=== PATIENT | female | born 1995 | race Caucasian/White ===

== ENCOUNTER 2017-01-06 22:58 | Emergency (ER) | payer MEDICAID ==
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
--- NOTE | 2017-01-08 10:56 | RADIOLOGY REPORT ---
Three views of the right four finger demonstrate no displaced fracture or dislocation. The visualized joints appear unremarkable. IMPRESSION: No displaced injury is identified. If clinically indicated, further evaluation and/or follow-up may be of benefit. SHANTEL
== END 2017-01-06 23:51 | disposition home or self-care (01) ==
LOC: ER 22:58
DX: S63.614A Unspecified sprain of right ring finger, initial encounter (principal); Y04.0XXA Assault by unarmed brawl or fight, initial encounter; Y07.12 Biological mother, perpetrator of maltreatment and neglect; Y92.019 Unspecified place in single-family (private) house as the place of occurrence of the external cause; F10.10 Alcohol abuse, uncomplicated; F17.210 Nicotine dependence, cigarettes, uncomplicated
CPT/HCPCS: 99283

== ENCOUNTER 2017-01-28 16:58 | Emergency (ER) | payer MEDICAID ==
--- NOTE | 2017-01-28 17:58 | ER NURSING DOCUMENTATION ---
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 today she tripped and c/o pain to right top of foot just below toes 2 and 3. States she has an appointment with ortho tomorrow but foot hurts too much to wait. also states she is concerned that she may be a diabetic. states she has had a weight gain of approx 45 lbs. Transition of care: Home. 17:09 Method Of Arrival: Walk In la Triage Assessment: 17:13 General: Appears comfortable, Behavior is appropriate for age, cooperative, pleasant. la Pain: Complains of pain in top of right foot Pain currently is 7 out of 10 on a pain scale. Aggravated by increased activity. EENT: No deficits noted. Neuro: Level of Consciousness is awake, alert, Oriented to person, place, time, event. Cardiovascular: No deficits noted. Respiratory: No deficits noted. GI: No deficits noted. : No deficits noted. Derm: No deficits noted. Musculoskeletal: Circulation, motion, and sensation intact Capillary refill < 3 seconds. Historical: - Allergies: No known drug Allergies; - Home Meds: 1. Adderall XR Oral 2. Celexa Oral 3. Zyprexa Oral - PMHx: ADHD; DEPRESSION; - PSHx: None; - Tetanus: unknown. - Ebola Screening: : Patient negative for fever greater than or equal to 101.5 degrees Fahrenheit, and additional compatible Ebola Virus Disease symptoms. - Immunization history: Flu Vaccine unknown. - Social history: Smoking status: Patient uses tobacco products, current every day smoker. Patient uses alcohol marijuana. Screenin:16 Infectious Disease Risk None. Abuse screen: Denies threats or abuse. Nutritional la screening: No deficits noted. Assessment: 17:16 See Triage Assessment done by same RN. la Vital Signs: 17:15 BP 133 / 88 LA Sitting; Pulse 126; Resp 18; Temp 98.9(O); Pulse Ox 93% on R/A; Weight la 77.11 kg (R); Height 5 ft. 4 in. (162.56 cm) (R); Pain 8/10; 17:56 BP 113 / 81 RA Sitting; Pulse 104; Resp 18; Pulse Ox 93% ; Pain 8/10; la 17:15 Body Mass Index 29.18 (77.11 kg, 162.56 cm) md ED Course: 16:59 Patient arrived in ED. dp 17:00 Paz, Provider is Private Physician. dp 17:04 Triage completed. 17:09 Lin Fine is Primary Nurse. la 17:16 Valuables Remains with patient Patient has correct armband on for positive la identification. Bed in low position. Call light in reach. Side rails up X 1. Verbal reassurance given. Pillow given. 17:34 Bhavik Gonsales MD is Attending Physician. brendon 17:35 Tucker Vargas DO, Maximiliano Sarabia MD is Referral Physician. 17:35 Port Xray Completed. hz Administered Medications: No medications were administered Point of Care Testing: Blood Glucose: 17:53 Blood Glucose: 80 mg/dL; la Ranges: Outcome: 17:35 Discharge ordered by . brendon 17:57 Discharged to home ambulatory. md 17:57 Condition: good 17:57 Discharge Assessment: Patient awake, alert and oriented x 3. No cognitive and/or functional deficits noted. Patient verbalized understanding of disposition instructions. 17:57 Discharge instructions given to patient, Instructed on discharge instructions, follow up and referral plans. medication usage, Demonstrated understanding of instructions, medications, Prescriptions given X 1. 17:57 Patient left the ED. la Signatures: Bhavik Gonsales MD MD jm Alexander, Linda la Sherri Zabala Natalee Valdes hz Holley Starr dp
--- NOTE | 2017-01-28 17:58 | ER PHYSICIAN DOCUMENTATION ---
Physician Documentation [facility] Name:Isabell Lopez Age:21 yrs Sex:Female :1995 Arrival Date:01/28/2017 Time:16:58 BedTrauma-B Private MD:Paz, Provider ED Bhavik Gonsales Disposition: 01/28/17 17:35 Discharged to Home/Self Care. Impression: Foot Contusion. - Condition is Good. - Discharge Instructions: CONTUSION, Foot. - Prescriptions for Tramadol 50 mg Oral Tablet - take 1 tablet by ORAL route every 8 hours as needed; 12 tablet. - Medical Reconciliation form form. - Follow up: Tucker Vargas DO, Maximiliano Sarabia MD; When: 1 - 2 days; Reason: Continuance of care. - Problem is new. - Symptoms have improved. HPI: 01/28 17:00 This 21 yrs old Female presents to ER via Walk In with complaints of Ankle jm Injury - RT. 17:00 The patient presents with an injury, pain, that is chronic. The complaints affect the jm right ankle, dorsum of right foot, right second toe and right third toe. Onset: The symptom(s)/episode began/occurred today. Context: The mechanism of injury is unknown. Associated signs and symptoms: Pertinent negatives: weakness. Severity of symptoms: in the emergency department the symptoms are unchanged. Pt is constantly on her feet at work and states that she's been having this chronic foot pain. She has appointment tomorrow w Dr. Vargas, but the pain is so bad and she was very anxious that something was wrong w her foot , so she came here. . Historical: - Allergies: No known drug Allergies; - Home Meds: 1. Adderall XR Oral 2. Celexa Oral 3. Zyprexa Oral - PMHx: ADHD; DEPRESSION; - PSHx: None; - Tetanus: unknown. - Ebola Screening: : Patient negative for fever greater than or equal to 101.5 degrees Fahrenheit, and additional compatible Ebola Virus Disease symptoms. - Immunization history: Flu Vaccine unknown. - Social history: Smoking status: Patient uses tobacco products, current every day smoker. Patient uses alcohol marijuana. ROS: 17:00 Constitutional: Negative for fever. jm 17:00 MS/extremity: Positive for pain, tenderness. 17:00 Skin: Negative for swelling. Exam: 17:00 Constitutional: The patient appears alert, awake. 17:00 Musculoskeletal/extremity: Extremities: grossly normal except: noted in the right third toe and right second toe and dorsum of right foot: pain, ROM: full active range of motion, full passive range of motion, Pulses: are normal with no appreciated deficits, Sensation intact. 17:00 Skin: Appearance: Color: pink, injury, is not appreciated. Vital Signs: 17:15 BP 133 / 88 LA Sitting; Pulse 126; Resp 18; Temp 98.9(O); Pulse Ox 93% on R/A; Weight la 77.11 kg (R); Height 5 ft. 4 in. (162.56 cm) (R); Pain 8/10; 17:56 BP 113 / 81 RA Sitting; Pulse 104; Resp 18; Pulse Ox 93% ; Pain 8/10; la 17:15 Body Mass Index 29.18 (77.11 kg, 162.56 cm) la MDM: 17:10 Patient medically screened. 20:26 Differential diagnosis: fracture, sprain. Data reviewed: vital signs, nurses notes, old medical records, radiologic studies, and as a result, I will discharge patient. Test interpretation: by ED physician or midlevel provider: plain radiologic studies. Counseling: I had a detailed discussion with the patient and/or guardian regarding: the historical points, exam findings, and any diagnostic results supporting the discharge/admit diagnosis, radiology results, the need for outpatient follow up, a orthopedic surgeon. 01/29 20:35 Order name: FOOT;[address] [place] [id number] EDMS Dispensed Medications: No medications were administered Point of Care Testing: Blood Glucose: 17:53 Blood Glucose: 80 mg/dL; la Ranges: Critical Glucose Levels:Adult <50 mg/dl or >400 mg/dl <40 mg/dl or >180 mg/dl Signatures: Bhavik Gonsales MD MD jm Alexander, Linda la
--- NOTE | 2017-01-29 19:21 | RADIOLOGY REPORT ---
Three views of the left foot demonstrate no displaced fracture or dislocation. The visualized joints appear unremarkable. IMPRESSION: No displaced injury is identified. If clinically indicated, further evaluation and/or follow-up may be of benefit. SHANTEL
== END 2017-01-28 17:58 | disposition home or self-care (01) ==
LOC: ER 16:58
DX: S90.31XA Contusion of right foot, initial encounter (principal); X50.9XXA Other and unspecified overexertion or strenuous movements or postures, initial encounter; Y92.511 Restaurant or cafe as the place of occurrence of the external cause; Y93.01 Activity, walking, marching and hiking
CPT/HCPCS: 99283

== ENCOUNTER 2017-02-20 15:55 | Emergency (ER) | payer MEDICAID ==
[2017-02-20 16:10] LABS: URINE RBC NONE SEEN (0-5/hpf); URINE WBC NONE SEEN (0-4/hpf)
[2017-02-20 16:17] LABS: URINE APPEARANCE CLEAR; URINE BILIRUBIN NEGATIVE (NEGATIVE); URINE BLOOD 50 Ery/uL (2+) (NEGATIVE); URINE COLOR YELLOW; URINE GLUCOSE NORMAL (NEGATIVE); URINE KETONE NEGATIVE (NEGATIVE); URINE LEUKOCYTE ESTERASE NEGATIVE (NEGATIVE); URINE NITRITE NEGATIVE (NEGATIVE); URINE PROTEIN NEGATIVE (NEG - TRACE); URINE SPECIFIC GRAVITY < or = 1.005 (0.001-1.035); URINE UROBILINOGEN 0.2mg/dL (Normal) (NEG-1mg/dL)
[2017-02-20 16:20] LABS: URINE AMORPHOUS SEDIMENT UP TO 25%/lpf (Up to 25%); URINE BACTERIA NONE SEEN (<10/hpf); URINE MUCUS NONE SEEN (Up to 25%); URINE SQUAMOUS EPITHELIAL CELL 0-5/hpf (<= 15/hpf)
--- NOTE | 2017-02-20 16:44 | ER PHYSICIAN DOCUMENTATION ---
Physician Documentation [facility] Name:Isabell Lopez Age:21 yrs Sex:Female :1995 Arrival Date:02/20/2017 Time:15:55 Bed3 Private MD:Marko Emerson ED, John Disposition: 02/20/17 16:39 Discharged to Home/Self Care. Impression: Insomnia. - Condition is Good. - Discharge Instructions: INSOMNIA. - Prescriptions for Ambien 10 mg Oral - take 1 tablet by ORAL route At bedtime As needed; 10 tablet. - Medical Reconciliation form form. - Follow up: [facility]; Reason: Continuance of care. - Problem is new. - Symptoms have improved. HPI: 02/20 16:50 This 21 yrs old Female presents to ER via Private Vehicle with complaints of jm Vaginal Bleeding. 16:50 The patient presents with a possible exposure to a sexually transmitted disease, jm vaginal bleeding that is light, a desire for a test. Also, pt has been getting no sleep. She had unprotected sex on February 05 and wonders if she is b/c her breasts hurt when she went down stairs today. . 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 Adderall XR Oral 2. Celexa Oral 3. Zyprexa Oral - PMHx: ADHD; DEPRESSION; - PSHx: NONE; - Tetanus: < 10 years. - Ebola Screening: : Patient negative for fever greater than or equal to 101.5 degrees Fahrenheit, and additional compatible Ebola Virus Disease symptoms. - Immunization history: Flu Vaccine >1 year. - Social history: Smoking status: Patient uses tobacco products, current every day smoker. Patient uses alcohol. ROS: 16:50 Positive for vaginal bleeding, spotting. jm 16:50 Psych: Positive for anxiety, insomnia. Exam: 16:50 Constitutional: The patient appears alert, awake, anxious. 16:50 Psych: Behavior/mood is pleasant, cooperative, anxious, Affect is calm. Vital Signs: 16:10 BP 134 / 87; Pulse 96; Resp 17; Temp 98.0(TE); Pulse Ox 96% on R/A; Weight 77.11 kg; rh Height 5 ft. 4 in. (162.56 cm); Pain 0/10; 16:10 Body Mass Index 29.18 (77.11 kg, 162.56 cm) rh MDM: 16:05 Patient medically screened. brendon 16:51 Differential diagnosis: dysmenorrhea, urinary tract infection, DUB, STD, insomnia. Data brendon reviewed: vital signs, nurses notes, and as a result, I will discharge patient. Counseling: I had a detailed discussion with the patient and/or guardian regarding: the historical points, exam findings, and any diagnostic results supporting the discharge/admit diagnosis, the need for outpatient follow up, an OB/Gyne specialist. 02/20 16:21 Order name: HCG, URINE; Complete Time: 16:31 EDOR 02/20 16:21 Order name: UA W/ MICRO -CULTURE IF IND; Complete Time: 16: EDMS 02/22 12:21 Order name: CHLAMYDIA/GC PROBE/URINE [facility] EDMS Dispensed Medications: No medications were administered Signatures: Bhavik Gonsales MD MD jm Hofsess, Rachel
--- NOTE | 2017-02-20 16:44 | ER NURSING DOCUMENTATION ---
Nurse's Notes [facility] Name:Isabell Lopez Age:21 yrs Sex:Female :1995 Arrival Date:02/20/2017 Time:15:55 Bed3 Private MD:Marko Emerson Diagnosis:Insomnia Presentation: 02/20 16:03 Acuity: ALEJANDRA 4 st 16:08 Presenting complaint: Patient states: PT thinks she may be . Last period was in January. Pt on Depo Shots and doesn't know if she is up to date. Pt also c/o burning with urination, itchiness and sore breasts. Transition of care: Home. 16:08 Method Of Arrival: Private Vehicle Triage Assessment: 16:09 General: Appears in no apparent distress, Behavior is anxious. Pain: Denies pain. : rh Urine is clear, Reports bedwetting vaginal itching vaginal bleeding that is spotty. Derm: Skin is intact, is healthy with good turgor, Skin is pink, warm & dry. 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 Adderall XR Oral 2. Celexa Oral 3. Zyprexa Oral - PMHx: ADHD; DEPRESSION; - PSHx: NONE; - Tetanus: < 10 years. - Ebola Screening: : Patient negative for fever greater than or equal to 101.5 degrees Fahrenheit, and additional compatible Ebola Virus Disease symptoms. - Immunization history: Flu Vaccine >1 year. - Social history: Smoking status: Patient uses tobacco products, current every day smoker. Patient uses alcohol. Screenin:11 Infectious Disease Risk None. Abuse screen: Denies threats or abuse. Denies injuries rh from another. Nutritional screening: No deficits noted. Assessment: 16:11 See Triage Assessment done by same RN. rh Vital Signs: 16:10 BP 134 / 87; Pulse 96; Resp 17; Temp 98.0(TE); Pulse Ox 96% on R/A; Weight 77.11 kg; rh Height 5 ft. 4 in. (162.56 cm); Pain 0/10; 16:10 Body Mass Index 29.18 (77.11 kg, 162.56 cm) rh ED Course: 15:57 Patient arrived in ED. ama 15:58 Marko Emerson MD is Private Physician. ama 16:03 Sharon Schwarz RN is Primary Nurse. st 16:[address] 16:05 Bhavik Gonsales MD is Attending Physician. 16:11 Notified ED Physician of patient's arrival and chief complaint. Dr. Gonsales notified. rh 16:11 Valuables Remains with patient Patient has correct armband on for positive rh identification. Call light in reach. 16:39 [facility] is Referral Physician. brendon Administered Medications: No medications were administered Outcome: 16:39 Discharge ordered by MD. 16:43 Discharged to home ambulatory. 16:43 Condition: stable 16:43 Discharge Assessment: Patient awake, alert and oriented x 3. No cognitive and/or functional deficits noted. Patient verbalized understanding of disposition instructions. 16:43 Discharge instructions given to patient, Instructed on discharge instructions, follow up and referral plans. Demonstrated understanding of instructions, medications, Prescriptions given X 1. 16:43 Patient left the ED. rh Signatures: Sharon Schwarz RN RN st Meyer, John, MD MD jm Averdick, Andrew, Reg Reg Sherri Mccormick
[2017-02-20] MEDS ORDERED: FLUMAZENIL 0.5 MG/5 ML VIAL IV ONE ×2 (23:18)
[2017-02-20] MEDS ORDERED: ONDANSETRON HCL 4 MG/2 ML VIAL ONE (23:27)
[2017-02-20] MEDS ORDERED: BENZTROPINE MESYLATE 2 MG/2 ML AMP ONE (23:32)
[2017-02-20] MEDS ORDERED: HALOPERIDOL 5 MG/ML VIAL ONE (23:32)
[2017-02-21] MEDS ORDERED: DIPHENHYDRAMINE 50 MG/ML VIAL ONE
[2017-02-21] MEDS ORDERED: HALOPERIDOL 5 MG/ML VIAL ONE ×2 (00:38)
[2017-02-22 12:21] LABS: CHLAMYDIA AMPLIFICATION BCH NEGATIVE (NEGATIVE); GONORRHOEAE AMPLIFICATION BCH NEGATIVE (NEGATIVE)
== END 2017-02-20 16:44 | disposition home or self-care (01) ==
LOC: ER 15:55
DX: G47.00 Insomnia, unspecified (principal); N93.9 Abnormal uterine and vaginal bleeding, unspecified; F41.9 Anxiety disorder, unspecified; Z79.899 Other long term (current) drug therapy; F17.210 Nicotine dependence, cigarettes, uncomplicated
CPT/HCPCS: 81001; 84703; 87798; 99282; J0515; J1200; J1630; J2405

== ENCOUNTER 2017-02-20 22:58 | Emergency (ER) | payer MEDICAID ==
[2017-02-20 23:28] LABS: HEMATOCRIT 48.9 % (36.0-48.0); HEMOGLOBIN 16.4 g/dL (12.0-16.0); MEAN CORPUSCULAR HEMOGLOBIN 29.6 pg (29.0-35.0); RED BLOOD COUNT 5.53 X 10^6uL (4.20-6.10); WHITE BLOOD COUNT 10.6 X 10^3uL (3.9-10.7)
[2017-02-20 23:29] LABS: BASOPHIL# 0.1 X 10^3uL (0.0-0.1); BASOPHILS 1.2 % (0.0-2.0); EOSINOPHILS 2.1 % (0.0-6.0); EOSINOPHILS# 0.2 X 10^3uL (0.0-0.4); MEAN CORPUS. HGB CONCENTRATION 33.5 g/dL (32.0-36.0); MONOCYTES 7.4 % (2.0-10.0); MONOCYTES# 0.8 X 10^3uL (0.2-1.0); NEUTROPHILS 34.3 % (54.0-75.0); NEUTROPHILS# 3.7 X 10^3uL (2.6-6.7); PLATELET COUNT 244 X 10^3uL (130-440); RED CELL DISTRIBUTION WIDTH 13.2 % (11.5-14.5)
[2017-02-20 23:30] LABS: ALBUMIN 4.8 g/dL (3.5-5.0); ALKALINE PHOSPHATASE 107 U/L (38-126); ALT 94 U/L (9-52); AST 74 U/L (14-36); BILIRUBIN, DIRECT 0.3 mg/dL (0.0-0.4); BILIRUBIN, TOTAL 0.4 mg/dL (0.2-1.3); BLOOD UREA NITROGEN 8 mg/dL (7-17); CALCIUM 9.3 mg/dL (8.4-10.2); CHLORIDE 109 mmol/L (98-107); EST GLOMERULAR FILTRATION RATE > 60 mL/min; GLUCOSE 97 mg/dL (70-100); LIPASE 129 U/L (23-300); POTASSIUM 3.8 mmol/L (3.5-5.1); SODIUM 147 mmol/L (137-145); TOTAL PROTEIN 8.3 g/dL (6.3-8.2)
[2017-02-20 23:32] LABS: ACETAMINOPHEN < 10.0 ug/mL (10.0-30.0); SALICYLATE < 1.0 mg/dL (<20.0)
[2017-02-20 23:54] LABS: ETHYL ALCOHOL 373 mg/dL (<10)
--- NOTE | 2017-02-21 00:41 | ER NURSING DOCUMENTATION ---
Nurse's Notes [facility] Name:Isabell Lopez Age:21 yrs Sex:Female :1995 Arrival Date:02/20/2017 Time:22:58 BedTrauma-A Private MD: Diagnosis:Prescription Medicine Overdose-: Ambien (100mg);Alcohol Intoxication, Dependence Acute;Dehydration;Suicide Attempt Presentation: 02/20 23:14 Presenting complaint: EMS states: pt ingested 10 tabs of ambian and an unknown amount bw2 of alcohol. pt is not alert or oriented. Transition of care: patient was not received from another setting of care. Care prior to arrival: IV initiated. gauge and site 18 right AC IV Fluids given by EMS NS 1000 ml. 23:14 Acuity: ALEJANDRA 2 bw2 23:14 Method Of Arrival: EMS: 410 bw2 Triage Assessment: 23:18 General: Appears unkempt, Behavior is agitated, crying, inappropriate for age, bw2 combative. Pain: Denies pain. GI: Pt is actively vomiting bile, undigested food. Historical: - Allergies: No known drug Allergies; - Home Meds: 1. Adderall XR Oral 2. Celexa Oral 3. Zyprexa Oral - PMHx: ADHD; DEPRESSION; - Tetanus: unknown. - Ebola Screening: : Patient negative for fever greater than or equal to 101.5 degrees Fahrenheit, and additional compatible Ebola Virus Disease symptoms. Patient denies exposure to infectious person. Patient denies travel to an Ebola-affected area in the 21 days before illness onset. No symptoms or risks identified at this time. . - Immunization history: Unable to Obtain. - Social history: Smoking status: unknown if patient ever smoked tobacco. Screenin:21 Infectious Disease Risk None. Abuse screen: Denies threats or abuse. Nutritional bw2 screening: No deficits noted. Suicide Risk Assessment: Unable to obtain due to. Assessment: 23:20 See Triage Assessment done by same RN. bw2 02/21 00:12 Reassessment: pt resting and waking occasionally and becoming agitated RN in room mv continually . Overdose: 02/20 23:00 Patient took Ambien 10mg - 10 tablets. Overdose occurred After 1700 Today. rh Vital Signs: 23:19 BP 116 / 76; Pulse 107; Resp 20; Pulse Ox 92% on R/A; Weight 81.65 kg; Height 5 ft. 2 bw2 in. (157.48 cm); Pain 0/10; 23:36 BP 97 / 60; Pulse 77; Resp 20; Pulse Ox 92% on R/A; rh 02/21 00:10 BP 101 / 58; Pulse 71; Resp 17; Pulse Ox 92% on R/A; bw2 02/20 23:19 Body Mass Index 32.92 (81.65 kg, 157.48 cm) bw2 [place] Coma Score: 00:03 Eye Response: to voice(3). Verbal Response: confused(4). Motor Response: withdraws from cd pain(4). Total: 11. ED Course: 02/20 22:58 Patient arrived in ED. em3 23:00 Maintain field IV. Good blood return noted. Site clean & dry. Gauge & site: 18 G in the L AC. 23:05 Theron Gregory MD is Attending Physician. cd 23:10 Inserted peripheral IV: 18 gauge in left antecubital area. rh 23:17 Triage completed. bw2 23:21 Valuables Remains with patient Patient has correct armband on for positive bw2 identification. Bed in low position. Cardiac Monitoring On for Nurse Monitoring only. Pulse Ox - RN Monitoring Only NIBP On - RN Monitoring Only. 02/21 00:00 Report given to PETER MORAES. 00:07 bhupendra bundy is Primary Nurse. mv 10:54 Primary Nurse role handed off by bhupendra bundy Restraints: 02/20 23:15 Implementation: Restraints applied at 23:15 Restraints were applied because patient is rh a danger to self, danger to others, danger to staff. 23:15 ORDER Received. rh 23:25 Response to meds is slight effect. rh 23:30 Assessment done every 15 minutes. Level of Consciousness is unable to follow directions rh Circulation: Pulses are regular all four extremities Capillary refill is less than 3 seconds Skin is intact, normal, Behavior is uncooperative. is still agitated. 23:45 Assessment done every 15 minutes. Level of Consciousness is unable to follow directions rh Circulation: Pulses are regular present in all four extremities Capillary refill is less than 3 seconds Skin is intact, normal, Behavior is uncooperative. is still agitated. is hostile. Observations: Patient is combative. 02/21 00:03 Assessment done every 15 minutes. Circulation: Pulses are regular present in all four rh extremities Capillary refill is less than 3 seconds Skin is intact, normal, Behavior is less agitated. 00:07 Assessment done every 15 minutes. Level of Consciousness is sleeping but awaking mv occasionally and becoming agitated. Circulation: Skin is intact, normal, Behavior is uncooperative. is less agitated. is less hostile. Respirations are regular. Observations: Patient is resting/calm. 00:30 Removal: Restraints were removed due to decreased agitation/hostility, patient's bw2 ability to follow instructions, Restraints were removed at 00:30. Administered Medications: 02/20 23:09 Drug: Romazicon 0.2 mg; Route: IVP; Site: left antecubital; 02/21 00:02 Follow up: Response: No adverse reaction 02/20 23:10 Drug: NS 0.9% 1000 ml; Route: IV; Rate: 150 ml/hr; Site: right antecubital; 23:40 Follow up: IV Status: Completed infusion 23:11 Drug: Romazicon 0.5 mg; Route: IVP; Site: left antecubital; 02/21 00:02 Follow up: Response: Marked relief of symptoms 02/20 23:20 Drug: Zofran 4 mg; Route: IVP; Infused Over: 2 mins; Site: right antecubital; 02/21 00:03 Follow up: Response: No adverse reaction; Nausea is decreased 02/20 23:30 CANCELLED (Duplicate Order): Romazicon 0.5 mg IVP once; Over 15 seconds 23:30 Drug: Haldol 5 mg; {Note: ADMINISTERED IN THE RIGHT ANTERIOR THIGH.} Route: IVP; Site: rh right hand; 02/21 00:03 Follow up: Response: Anxiety decreased 02/20 23:30 Drug: Cogentin 1 mg; Route: IM; Site: right vastus lateralis; mv 02/21 00:02 Follow up: Response: Anxiety decreased 02/20 23:42 Drug: NS 0.9% 1000 ml; Route: IV; Rate: bolus; Site: right antecubital; 02/21 01:32 Follow up: IV Status: Completed infusion bw 02/20 23:50 Drug: Benadryl 50 mg; {Note: administered.} Route: IVP; Site: right antecubital; mv 02/21 00:03 Follow up: Response: Anxiety decreased 02/20 23:51 Drug: Haldol 2 mg; Route: IVP; Site: left antecubital; 02/21 00:03 Follow up: Response: No adverse reaction 00:32 Drug: Haldol 1 mg; Route: IVP; Site: left antecubital; mv 01:32 Follow up: Response: Anxiety decreased 2 Outcome: 00:10 [facility] Time: February 20, 2017 at 23:20 Patient's face sheet was faxed to accepting facility. Face Sheet included patient's name, address, age, gender, contact information and insurance information. Patient will be transported by: [facility] ground. Nurse and Physician Charting and Notes were sent to Accepting Facility. All tests and/or procedures with results, if applicable, were sent to accepting facility. 00:10 Condition: stable 00:10 Discharge Assessment: Patient lethargic. 00:10 Instructed on need for transfer 00:12 ER care complete, transfer ordered by . el 00:39 Report given to Janine MORAES bw2 00:40 Patient left the ED. bw2 10:55 Patient left the ED. Signatures: Theron Gregory MD MD cd Meiklejohn, Eric em3 Hofsess, Rachel bhupendra bundy Beth bw2
--- NOTE | 2017-02-21 00:41 | ER PHYSICIAN DOCUMENTATION ---
Physician Documentation [facility] Name:Isabell Lopez Age:21 yrs Sex:Female :1995 Arrival Date:02/20/2017 Time:22:58 BedTrauma-A Private MD: Theron Hinojosa Disposition: 02/21/17 00:12 Transfer ordered to [facility]. Diagnosis are Prescription Medicine Overdose - : Ambien (100mg), Alcohol Intoxication, Dependence Acute, Dehydration, Suicide Attempt. - Reason for transfer: Higher level of care. - Accepting physician is Farhana Merlos MD, [facility] Hospitalist. - Condition is Serious. - Problem is new. - Symptoms have improved. COBRA Form completed? Transfer - Mode of Transportation Ambulance HPI: 02/20 23:52 This 21 yrs old Female presents to ER via EMS with complaints of Overdose of cd Ambien. 23:52 The patient presents to the emergency department after a known overdose, that was cd intentional. Context: Method: the patient has a confirmed or suspected ingestion, Time: the patient's OD/poisoning occurred at an unknown time, Extent: the original prescription was for 10 pills/capsules, there were 0 pills/capsules remaining in the container, the strength of the pills/capsules is 10 mg(s), the patient had a total ingestion of approximately 100 mg(s), the OD/poisoning occurred at at home, Psychiatric history: it is unknown whether or not the patient has an antecedent psychiatric history. Associated signs and symptoms: Pertinent positives: anxiety, decreased level of consciousness, nausea, tearfulness, vomiting, decreased respirations, Pertinent negatives: apnea, diaphoresis, loss of consciousness. Severity of symptoms: At their worst the symptoms were severe in the emergency department the symptoms are unchanged. It is unknown whether or not the patient has had similar symptoms in the past. Patient was seen in the ED at roughly [address] Gonsales at [facility]. He diagnosed Insomnia and prescribed Ambien 10 mg PO QHS x 10 tablets. The patient has been drinking a lot of alcohol and ingested all the pills from the bottle. = 100 mg total. At the seen the patient was maintaining her airway. She vomited en-route, her airway was patent on arrival, she was uncooperative and incoherent. She has NO history of chronic Benzodiazepine use per her mother. She is on no meds. She is NOT . She required Benzodiazepine reversal with Romazicon total dose given 0.7 mg on arrival to the ED.. Historical: - Allergies: No known drug Allergies; - Home Meds: 1. Adderall XR Oral 2. Celexa Oral 3. Zyprexa Oral - PMHx: ADHD; DEPRESSION; - Tetanus: unknown. - Ebola Screening: : Patient negative for fever greater than or equal to 101.5 degrees Fahrenheit, and additional compatible Ebola Virus Disease symptoms. Patient denies exposure to infectious person. Patient denies travel to an Ebola-affected area in the 21 days before illness onset. No symptoms or risks identified at this time. . - Immunization history: Unable to Obtain. - Social history: Smoking status: unknown if patient ever smoked tobacco. ROS: 02/21 00:02 Constitutional: Positive for poor PO intake. cd Cardiovascular: Negative for chest pain, palpitations. Respiratory: Positive for decreased respirations, Negative for shortness of breath. Neuro: Positive for altered mental status, decreased mentation. Unable to obtain ROS due to altered mental status, obtunded state, patient distress, patient being uncooperative. Exam: 00:03 Constitutional: The patient appears non-diaphoretic, non-toxic, anxious, lethargic, cd obese. 00:03 Cardiovascular: Rate: tachycardic, actual rate is 104 bpm, Rhythm: regular, Pulses: no pulse deficits are appreciated, Heart sounds: normal. 00:03 Respiratory: the patient does not display signs of respiratory distress, Respirations: normal, no acute changes, Breath sounds: are normal, clear throughout. 00:03 Abdomen/GI: Inspection: abdomen appears normal, Palpation: abdomen is soft and non-tender. 00:03 Neuro: Orientation: Not oriented to place, time, situation, Mentation: responsive to voice confused, Cranial nerves: unable to test, Cerebellar function: unable to test, Motor: moves all fours. 00:03 Psych: Behavior/mood is anxious, aggressive, uncooperative, depressed, Affect is flat, Patient having thoughts of suicide. Judgement / Insight is impaired. Vital Signs: 02/20 23:19 BP 116 / 76; Pulse 107; Resp 20; Pulse Ox 92% on R/A; Weight 81.65 kg; Height 5 ft. 2 bw2 in. (157.48 cm); Pain 0/10; 23:36 BP 97 / 60; Pulse 77; Resp 20; Pulse Ox 92% on R/A; rh 07 00:10 BP 101 / 58; Pulse 71; Resp 17; Pulse Ox 92% on R/A; bw2 02/20 23:19 Body Mass Index 32.92 (81.65 kg, 157.48 cm) bw2 [place] Coma Score: 00:03 Eye Response: to voice(3). Verbal Response: confused(4). Motor Response: withdraws from cd pain(4). Total: 11. MDM: 02/20 23:05 Patient medically screened. cd 23:20 Data interpreted: Pulse oximetry: on room air is 90 %. Interpretation: acceptable. cd Physician consultation: Farhana Merlos MD was called at 23:35, was contacted at 23:40, regarding admission, to the ICU, consult, patient's condition, need to evaluate the patient as soon as possible, and will see patient in unit, shortly, after a discussion of the case, a recommendation for transfer for higher level of care is made. 02/21 00:04 Response to treatment: the patient's symptoms have markedly improved after treatment, cd patient's Ambien Overdose was reversed with Romazicon 0.2 mg then 0.5 mg slow IVP. She then required Haldol 5 mg IM and Cogentin 1 mg IM for sedation. She continued to be combative with soft restraints and required Haldol 2 mg IV and Benadryl 50 mg IV. 00:05 Differential diagnosis: Ingestion/exposure to ETOH and Ambien polypharmacy, cd hypoglycemia. 00:07 Data reviewed: vital signs, nurses notes, EMS record, old medical records, lab test cd result(s), and as a result, I will *Transfer Patient administer IV fluids, NS bolus, NS maintenence, prescribe sedation medication, halperidol, Cogentin and Benadryl, Romazicon was initially given to reverse the Benzo Overdose.. 02/20 23:30 Order name: CBC AUTO DIF, MDIF/RMOR IF IND; Complete Time: 00:13 EDMS 02/20 23:39 Interpretation: Normal Except: HEMOGLOBIN 16.4; HEMATOCRIT 48.9. cd 02/20 23:34 Order name: BASIC METABOLIC PANEL; Complete Time: 00:13 EDMS 02/20 23:51 Interpretation: Normal Except: CARBON DIOXIDE 19. 02/20 23:34 Order name: HEPATIC PANEL; Complete Time: 00:13 EDMS 02/20 23:52 Interpretation: Normal Except: ALT 94; AST 74. 02/20 23:34 Order name: LIPASE; Complete Time: 00:13 EDMS 02/20 23:52 Interpretation: Normal. 02/20 23:34 Order name: SALICYLATE; Complete Time: 00:13 EDMS 02/20 23:52 Interpretation: Normal. 02/20 23:34 Order name: ETHYL ALCOHOL; Complete Time: 00:13 EDMS 02/21 00:13 Interpretation: Abnormal: ETHYL ALCOHOL 373. 02/20 23:34 Order name: ACETAMINOPHEN; Complete Time: 00:13 EDMS 02/20 23:52 Interpretation: Normal. 02/21 00:18 Order name: THYROID STIMULATING HORMONE; Complete Time: 07:08 EDMS 02/21 07:08 Interpretation: Normal. 02/20 23:08 Order name: Continuous Cardiac Monitoring; Complete Time: 23:11 02/20 23:08 Order name: I & O; Complete Time: 23:11 02/20 23:08 Order name: Iv Saline Lock; Complete Time: 23:11 02/20 23:08 Order name: NPO; Complete Time: 23:11 02/20 23:08 Order name: Pulse Ox Continuous; Complete Time: 23:11 02/20 23:08 Order name: Suicide Precautions; Complete Time: 23:11 02/21 10:55 Order name: Restraints, 4 point, Adults, for Violent Behavior creating danger to pt rh and/or others, 4 hour max duration, 4 point soft wrist and ankle restraints, criteria for removal is pt is no longer threat to self or others; Complete Time: 10:55 Dispensed Medications: 02/20 23:09 Drug: Romazicon 0.2 mg; Route: IVP; Site: left antecubital; mv 02/21 00:02 Follow up: Response: No adverse reaction 02/20 23:10 Drug: NS 0.9% 1000 ml; Route: IV; Rate: 150 ml/hr; Site: right antecubital; mv 23:40 Follow up: IV Status: Completed infusion mv 23:11 Drug: Romazicon 0.5 mg; Route: IVP; Site: left antecubital; 02/21 00:02 Follow up: Response: Marked relief of symptoms 02/20 23:20 Drug: Zofran 4 mg; Route: IVP; Infused Over: 2 mins; Site: right antecubital; 02/21 00:03 Follow up: Response: No adverse reaction; Nausea is decreased 02/20 23:30 CANCELLED (Duplicate Order): Romazicon 0.5 mg IVP once; Over 15 seconds 23:30 Drug: Haldol 5 mg; {Note: ADMINISTERED IN THE RIGHT ANTERIOR THIGH.} Route: IVP; Site: right hand; 02/21 00:03 Follow up: Response: Anxiety decreased 02/20 23:30 Drug: Cogentin 1 mg; Route: IM; Site: right vastus lateralis; 02/21 00:02 Follow up: Response: Anxiety decreased 02/20 23:42 Drug: NS 0.9% 1000 ml; Route: IV; Rate: bolus; Site: right antecubital; 02/21 01:32 Follow up: IV Status: Completed infusion [facility] 02/20 23:50 Drug: Benadryl 50 mg; {Note: administered.} Route: IVP; Site: right antecubital; 02/21 00:03 Follow up: Response: Anxiety decreased 02/20 23:51 Drug: Haldol 2 mg; Route: IVP; Site: left antecubital; 02/21 00:03 Follow up: Response: No adverse reaction 00:32 Drug: Haldol 1 mg; Route: IVP; Site: left antecubital; 01:32 Follow up: Response: Anxiety decreased 2 Critical care time excluding procedures: 00:10 Critical care time: Bedside Care: 45 minutes, Consultation: 10 minutes, Family cd Intervention: 10 minutes. Total time: 65 minutes Signatures: Theron Gregory MD MD cd Hofsess, Rachel bhupendra bundy Joann Chin [facility]
[2017-02-26 16:21] LABS: LYMPHOCYTES# 5.9 X 10^3uL (0.8-3.8)
== END 2017-02-21 10:56 | disposition short-term general hospital (02) ==
LOC: EEVIPCON 22:58 → ER 22:58
DX: T42.6X2A Poisoning by other antiepileptic and sedative-hypnotic drugs, intentional self-harm, initial encounter (principal); T51.0X2A Toxic effect of ethanol, intentional self-harm, initial encounter; E86.0 Dehydration; R11.10 Vomiting, unspecified; R06.89 Other abnormalities of breathing; R41.82 Altered mental status, unspecified; R00.0 Tachycardia, unspecified; R45.6 Violent behavior
CPT/HCPCS: 80048; 80076; 80307; 80320; 80329; 83690; 84443; 85025; 96361; 96372; 96374; 96375; 96376; 99291; A0425; A0427